=== PATIENT | female | born 1955 | race Two or more races ===

== ENCOUNTER 2016-09-25 06:23 | Day surgery (SDC) | payer OTHER ==
[~2016-09-25] VITALS: Ht 149.9 cm; Wt 71.2 kg
[2016-09-25] VITALS (13 sets, daily range): BP systolic 109–126; BP diastolic 58–72; PULSE 56–66; RESP 11–20; Ht 149.9 cm; Wt 71.2 kg
[2016-09-25] MEDS ORDERED: LEVO75TA5 PO (07:22)
[2016-09-25] MEDS ORDERED: METF500T4 PO (07:22)
[2016-09-25] MEDS ORDERED: SIMV20TA2 PO (07:22)
[2016-09-25] MEDS ORDERED: GLYCOPYRROLATE 1 MG INJ ONE (07:26)
[2016-09-25] MEDS ORDERED: METOCLOPRAMIDE 10 MG INJ ONE ×2 (07:26→08:37)
[2016-09-25] MEDS ORDERED: MIDAZOLAM 1 MG/ML 2 ML INJ ONE (07:26)
[2016-09-25] MEDS ORDERED: NEOSTIGMINE 3 MG/3 ML SYRINGE ONE (07:26)
[2016-09-25] MEDS ORDERED: PROPOFOL 20 ML ONE ×2 (07:26→08:37)
[2016-09-25] MEDS ORDERED: HYDROmorphONE 2 MG/ML SYG ONE (07:26)
[2016-09-25] MEDS ORDERED: ROCURONIUM 50 MG INJ ONE (07:26)
[2016-09-25] MEDS ORDERED: ROPIVACAINE 0.5 % 30 ML VIAL ONE (07:50)
[2016-09-25] MEDS ORDERED: KETOROLAC 30 MG INJ ONE (07:50)
[2016-09-25] MEDS ORDERED: DEXTROSE 5%-LR 1,000 ML IV ONE (08:00)
[2016-09-25] MEDS ORDERED: ONDANSETRON 4 MG INJ ONE (08:37)
[2016-09-25] MEDS ORDERED: MEPERIDINE 100 MG INJ ONE (08:37)
[2016-09-25] MEDS ORDERED: LIDOCAINE 2% (SDV) 5 ML INJ ONE (08:37)
--- NOTE | 2016-09-25 08:47 | HPN ---
Date/Time of Note Date/Time of Note DATE: 09/25/16 TIME: 08:46 Interval H&P Admission Note Pt. seen H&P reviewed: No system changes ILEANA MALLOY MD Sep 25, 2016 08:47
[2016-09-25] MEDS ORDERED: DIPHENHYDRAMINE 50 MG INJ IV PRN (09:00)
[2016-09-25] MEDS ORDERED: MEPERIDINE 25 MG INJ IV PRN (09:00)
[2016-09-25] MEDS ORDERED: MIDAZOLAM 1 MG/ML 2 ML INJ IV PRN (09:00)
[2016-09-25] MEDS ORDERED: EPHEDrine SULFATE 50 MG/5 ML SYG IV PRN (09:00)
[2016-09-25] MEDS ORDERED: HYDROmorphONE (0.2 MG/ML) 10ML SYG IV PRN ×2 (09:00)
[2016-09-25] MEDS ORDERED: morphine (1 MG/ML) 10ML SYRINGE IV PRN ×2 (09:00)
[2016-09-25] MEDS ORDERED: hydrALAzine 20 MG INJ IV PRN (09:00)
[2016-09-25] MEDS ORDERED: METOCLOPRAMIDE 10 MG INJ IV PRN (09:00)
[2016-09-25] MEDS ORDERED: LABETALOL HCL 20MG INJ IV PRN (09:00)
[2016-09-25] MEDS ORDERED: ONDANSETRON 4 MG INJ IV PRN (09:00)
[2016-09-25] MEDS ORDERED: FENTAnyl 50 MCG/ML VIAL IV PRN ×2 (09:00)
--- NOTE | 2016-09-25 09:36 | PD.PPDC ---
[employer] Discharge Instruction Diagnosis Final Diagnosis: vulva lesion Condition Patient Condition: Stable Diet Diet: Resume Regular Diet Activity/Restrictions Activity: May Shower Restrictions: No Sexual Activity Nothing in the Vagina No Howell No Tampons, douche Wound/Drain Care Instructions Wound/Drain Care Instructions: Wash with soap and water Keep clean and dry Follow-up Follow-up with Physician: 2, Week/Weeks Return to clinic for TECHN[employer] SPECIALIST Instructions: Fever greater than 101 Chills Worsening abdominal pain Excessive Vaginal Bleeding More than 2 pads per hour Unable to tolerate diet Surgical Instructions: Incisional Drainage Incisional Redness ILEANA MALLOY MD Sep 25, 2016 09:35
--- NOTE | 2016-09-28 07:12 | OPR ---
DATE OF OPERATION: 09/25/2016 PREOPERATIVE DIAGNOSIS: Vulvar lesion. POSTOPERATIVE DIAGNOSIS: See pathological report. NAME OF OPERATION: Excisional biopsy of vulvar lesion on the left labia majora, about 7 x 2 cm. ANESTHESIA: General. ANESTHESIOLOGIST: See report in the chart. SURGEON: Marilu Guillen MD ESTIMATED BLOOD LOSS: Negligible. PROCEDURE: Under the proper induction of general anesthesia, the patient was placed in the dorsal l ithotomy position. Perineal area and vaginal wall was prepped and draped in usual aseptic manner. On inspection, external genitalia revealed multiple whitish lichenified patches on the entire labia majora and perineum, especially on the left side labia majora where there is a longitudinal elliptic al lesion which is white and lichenified. This area was excised using scalpel and epileptically sta rting from the top to bottom, and this lesion was excised with Metzenbaum. The lesion which sized a bout 2 x 7, thickness may be 0.3, was sent to pathology exam. The defect was closed with 3-0 chromi c catgut in continuous manner using GI needle. No bleeder was noted. A piece of ____ gauze was todd karthik on, and the patient was sent to the recovery room in stable condition. Dictated By: MARILU RUSSO/MARLI Conf#: [id number] DID#: [id number]
== END 2016-09-25 11:39 | disposition home or self-care (01) ==
LOC: SDS 06:23
PROVIDERS: ATTEND Obstetrics & Gynecology
DX: N90.4 Leukoplakia of vulva (principal); E11.9 Type 2 diabetes mellitus without complications; E03.9 Hypothyroidism, unspecified; E78.5 Hyperlipidemia, unspecified; E66.9 Obesity, unspecified; Z68.31 Body mass index [BMI] 31.0-31.9, adult
CPT/HCPCS: 11426; 82962; 88305; J1170; J1885; J2175; J2250; J2405; J2710; J2765; J2795; J7121; Z7512; Z7610